=== PATIENT | male | born 1950 | race Caucasian/White ===

== ENCOUNTER → 2016-09-28 | Outpatient (CLI) | payer MEDICARE, OTHER ==
[~2016-09-28] MED LIST: ALLO100T30 PO; ATOR20TA9 PO; BENA20TA2 PO; CARV6.2512 PO; CHOL10002 PO; DICL100G25 TP; DILT360C26 PO; HYDR-3138 PO; IBUP200C8 PO; OMEP-110 PO; TAMS0.4C2 PO
== END | disposition home or self-care (01) ==
LOC: MERGE 10:23 → RAD 10:23
PROVIDERS: ATTEND Neurological Surgery
DX: Z13.820 Encounter for screening for osteoporosis (principal); M48.06 Spinal stenosis, lumbar region; M47.895 Other spondylosis, thoracolumbar region; M47.897 Other spondylosis, lumbosacral region; M85.88 Other specified disorders of bone density and structure, other site
CPT/HCPCS: 72082; 77080

== ENCOUNTER → 2016-09-29 | Outpatient (CLI) | payer MEDICARE, OTHER | END | disposition home or self-care (01) | LOC: CARD 09:42 | PROVIDERS: ATTEND Neurological Surgery | DX: Z01.810 Encounter for preprocedural cardiovascular examination (principal); I45.10 Unspecified right bundle-branch block; I25.89 Other forms of chronic ischemic heart disease; M48.06 Spinal stenosis, lumbar region | CPT/HCPCS: 93017; 93350; 94010; 94726; 94729 ==

== ENCOUNTER → 2016-11-09 | Outpatient (CLI) | payer MEDICARE, OTHER | END | disposition home or self-care (01) | LOC: RAD 16:57 | PROVIDERS: ATTEND Neurological Surgery | DX: R60.0 Localized edema (principal) | CPT/HCPCS: 93970 ==

== ENCOUNTER → 2016-12-08 | Outpatient (CLI) | payer MEDICARE, OTHER | END | disposition home or self-care (01) | LOC: RAD 09:29 | PROVIDERS: ATTEND Neurological Surgery | DX: M47.895 Other spondylosis, thoracolumbar region (principal); Z98.1 Arthrodesis status | CPT/HCPCS: 72082 ==

== ENCOUNTER → 2017-01-17 | Outpatient (CLI) | payer MEDICARE, OTHER | END | disposition home or self-care (01) | LOC: RAD 10:50 | PROVIDERS: ATTEND Neurological Surgery | DX: M54.5 Low back pain (principal); G89.29 Other chronic pain | CPT/HCPCS: 72082 ==